=== PATIENT | female | born 1985 | race Caucasian/White ===

== ENCOUNTER 2021-12-01 18:03 | Emergency (ER) | payer OTHER ==
[~2021-12-01] VITALS: Ht 175.3 cm; Wt 80.0 kg
[2021-12-02] MEDS ORDERED: HYDR-4001 MT (00:14)
[2021-12-02] MEDS ORDERED: KETOROLAC 30MG/ML VIAL IM ONE (00:15)
[2021-12-02 00:35] VITALS: BP 124/75
== END 2021-12-02 00:35 | disposition home or self-care (01) ==
LOC: ER 18:03
DX: R68.84 Jaw pain (principal)
CPT/HCPCS: 70110; 81025; 96372; 99283; J1885